=== PATIENT | female | born 1970 | race Caucasian/White ===

== ENCOUNTER 2017-03-14 09:00 | Emergency (ER) | payer OTHER ==
[~2017-03-14] VITALS: Ht 160 cm; Wt 63.6 kg
[2017-03-14 09:03] VITALS: TEMP 98.4
[2017-03-14] MEDS ORDERED: ZANAFLEX CAPSULE2 MG PO (09:37)
[2017-03-14] MEDS ORDERED: NORCO 325 MG-51 TAB PO (09:37)
[2017-03-14 09:45] VITALS: BP 130/81; PULSE 88
== END 2017-03-14 09:50 | disposition home or self-care (01) ==
LOC: COL.ER 09:00
DX: M46.1 Sacroiliitis, not elsewhere classified (principal); X50.3XXA Overexertion from repetitive movements, initial encounter; X50.1XXA Overexertion from prolonged static or awkward postures, initial encounter; Y92.89 Other specified places as the place of occurrence of the external cause

== ENCOUNTER → 2017-11-22 | Outpatient (CLI) | payer OTHER, BC ==
[~2017-11-22] MED LIST: NORCO 325 MG-51 TAB PO; ZANAFLEX CAPSULE2 MG PO
== END ==
LOC: MHCPAIN 13:14
DX: G89.29 Other chronic pain (principal); M47.817 Spondylosis without myelopathy or radiculopathy, lumbosacral region; M53.3 Sacrococcygeal disorders, not elsewhere classified
CPT/HCPCS: G0463

== ENCOUNTER → 2021-04-24 | Outpatient (CLI) | payer BC | LOC: MC.RAD 14:23 | DX: Z12.31 Encounter for screening mammogram for malignant neoplasm of breast (principal); N64.9 Disorder of breast, unspecified ==

== ENCOUNTER → 2021-04-28 | Outpatient (CLI) | payer BC | LOC: MC.RAD 08:54 | DX: R92.8 Other abnormal and inconclusive findings on diagnostic imaging of breast (principal) ==

== ENCOUNTER → 2021-07-25 | Outpatient (CLI) | payer BC | LOC: ZCOL.LAB 11:20 | DX: L72.0 Epidermal cyst (principal) ==

== ENCOUNTER → 2021-10-23 | Outpatient (CLI) | payer BC | LOC: MC.RAD 09:11 | DX: N63.10 Unspecified lump in the right breast, unspecified quadrant (principal) ==

== ENCOUNTER → 2022-04-30 | Outpatient (CLI) | payer BC | LOC: MC.RAD 08:51 | DX: Z12.31 Encounter for screening mammogram for malignant neoplasm of breast (principal) ==

== ENCOUNTER → 2024-05-22 | Outpatient (CLI) | payer BC | LOC: MC.RAD 10:46 | DX: Z12.31 Encounter for screening mammogram for malignant neoplasm of breast (principal) ==